=== PATIENT | female | born 1990 | race Caucasian/White ===

== ENCOUNTER 2017-04-21 01:41 | Emergency (ER) | payer SELFPAY | END 2017-04-21 07:31 | disposition home or self-care (01) | LOC: ERS 01:41 | DX: G93.2 Benign intracranial hypertension (principal); F41.9 Anxiety disorder, unspecified; F31.9 Bipolar disorder, unspecified; F17.210 Nicotine dependence, cigarettes, uncomplicated | CPT/HCPCS: 62270 ==

== ENCOUNTER 2017-07-12 09:29 | Emergency (ER) | payer SELFPAY | END 2017-07-12 11:45 | disposition home or self-care (01) | LOC: ERS 09:29 | DX: L02.31 Cutaneous abscess of buttock (principal); F41.9 Anxiety disorder, unspecified; F31.9 Bipolar disorder, unspecified; F17.210 Nicotine dependence, cigarettes, uncomplicated | CPT/HCPCS: 10060; 87070; 87077; 87205 ==

== ENCOUNTER 2018-04-09 01:05 | Emergency (ER) | payer SELFPAY ==
[2018-04-09] MEDS ORDERED: Ketorolac Tromethamine 30 MG/ML VIAL ONE (02:16)
[2018-04-09] MEDS ORDERED: Metoclopramide HCl 10 MG/2 ML VIAL ONE (02:16)
[2018-04-09] MEDS ORDERED: diphenhydrAMINE 50 MG/ML VIAL ONE (02:18)
== END 2018-04-09 03:20 | disposition home or self-care (01) ==
LOC: ERS 01:05
DX: R51 Headache (principal); F41.9 Anxiety disorder, unspecified; F31.9 Bipolar disorder, unspecified; F17.210 Nicotine dependence, cigarettes, uncomplicated
CPT/HCPCS: 96365; 96375; J1200; J1885; J2765